=== PATIENT | female | born 1975 | race Two or more races ===

== ENCOUNTER 2016-06-07 10:04 | Emergency (ER) | payer OTHER, MEDICAID ==
[2016-06-07 10:26] VITALS: TEMP 98.1; BMI 38.9
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
[2016-06-07 13:07] VITALS: BP 165/98; PULSE 85
== END 2016-06-07 13:03 | disposition home or self-care (01) ==
LOC: EDMC 10:04
DX: S39.012A Strain of muscle, fascia and tendon of lower back, initial encounter (principal); V49.50XA Passenger injured in collision with unspecified motor vehicles in traffic accident, initial encounter; Y93.9 Activity, unspecified; Y92.410 Unspecified street and highway as the place of occurrence of the external cause
CPT/HCPCS: 72110; 99282